=== PATIENT | female | born 1960 | race Caucasian/White ===

== ENCOUNTER 2017-08-08 09:54 | Day surgery (SDC) | payer OTHER, SELFPAY ==
[2017-08-08] VITALS (9 sets, daily range): BP systolic 106–157; BP diastolic 72–97; PULSE 55–79; RESP 12–16; TEMP 36.1–36.6; O2SAT 95–99
--- NOTE | 2017-08-08 10:51 | PM.PREOP ---
Pre-operative Note Interval Note Pre-op Check: History & Physical Reviewed by Physician and Exam Performed ASA Class (for procedural sedation): I
--- NOTE | 2017-08-08 11:07 | PM.OP.ENDO ---
Operative Date/Time/Diagnoses - Date of procedure: 08/08/17 Time of procedure: 11:08 Pre-op diagnosis: Vague upper abdominal pain chronic Post-op diagnosis: other (Normal examination) Procedure & Clinicians Study performed: EGD Same procedure as scheduled: Yes Indications: Vague abdominal pain cause uncertain Surgeon: Steven Hoff Procedure Notes SCOAP/Timeout: Perform Procedure in detail: The patient had topical anesthetic applied to oropharynx. She was placed in left lateral decubitus position and underwent IV sedation directed by the surgeon consisting of fentanyl and Versed. A bite block was inserted and the scope was advanced through it into the esophagus. The esophagus was unremarkable. GE junction was noted at 37 cm. The stomach insufflated well. There were no lesions seen in the body, antrum or at the incisura. The pyloric channel was mildly narrowed but patent. The duodenum was unremarkable to the 4th part. The scope was brought back into the stomach and retroflexed. The proximal stomach normal in appearance. There was no evidence of a hiatal hernia. The scope was straightened and brought out through the esophagus again. No lesions were seen. The scope was removed and the patient tolerated the procedure well. Scope withdrawal time: Not applicable Sedation minutes: 12 Findings: other findings (Normal exam) Specimen(s): none sent Complications: none Plan for aftercare: If the patient desires to have her gallbladder removed that can be done. Follow up: as needed Disposition: PACU
[2017-08-08] MEDS: fentaNYL 250 MCG/5 ML INJ 150 MCG IV (11:11)
[2017-08-08] MEDS: MIDAZOLAM 5 MG/5 ML VIAL 4 MG IV (11:11)
[2017-08-08] MEDS: LIDOCAINE 4% SOLN 50 ML 20 ML TOP (11:11)
[2017-08-08] MEDS: TETRACAINE/BENZOCAINE/BUTAMBEN (CETACAINE) BOTTLE 1 SPRAY TOP (11:12)
--- NOTE | 2017-08-08 11:58 | SUR.PHASEII ---
Assumed care. Pt drowsy. Easily aroused, smiling. Warm blanket applied. Pt requested to nap, lights dimmed.
[2017-08-08] MEDS: SODIUM CHLORIDE 0.9% 1,000 ML 84 ML IV (12:09)
--- NOTE | 2017-08-08 12:26 | SUR.PHASEII ---
Pt requested Tylenol for a headache, discussed need a Dr. order to give Tylenol, pt stated that she would just take one when she went home. Offered beverage, pt did not respond. Call light within reach.
== END 2017-08-08 12:53 | disposition home or self-care (01) ==
PROVIDERS: Family Provider Family Medicine Geriatric Medicine; PCP Family Medicine Geriatric Medicine; Visit Provider Specialist
PROC: 0DJ08ZZ Inspection of Upper Intestinal Tract, Via Natural or Artificial Opening Endoscopic (ICD-10-PCS; CPT 43235; principal; 2017-08-08 10:45)
DX: R10.10 Upper abdominal pain, unspecified (principal); R11.0 Nausea; Z87.11 Personal history of peptic ulcer disease; R68.81 Early satiety; K80.80 Other cholelithiasis without obstruction
CPT/HCPCS: 43235; 99152; J2250; J3010

== ENCOUNTER → 2018-05-05 19:19 | Outpatient (REF) | payer OTHER, SELFPAY ==
[2018-05-05 20:29] LABS: Add Manual Diff / Slide Review NO; Basophils Absolute Auto 0 /uL (0-100); Basophils Percent Auto 0.7 % (0-2); Eosinophils Absolute Auto 100 /uL (0-450); Hematocrit 43.3 % (36-46); Hemoglobin 14.7 g/dL (12.0-16.0); Lymphocytes Absolute Auto 1200 /uL (1100-4500); Mean Corpuscular Hemoglobin 31.1 PG (26-34); Mean Corpuscular Volume 91.4 fL (80-100); Monocytes Absolute Auto 400 /uL (0-900); Monocytes Percent Auto 8.2 % (3-14); Neutrophils Absolute Auto 3600 /uL (1500-7000); Neutrophils Percent Auto 67.1 % (50-75); Platelet Count 333 X10^3/uL (150-400); Red Blood Cell Count 4.73 X10^6/uL (4.0-5.2); Red Cell Distribution Width 13.4 % (11.6-14.8); White Blood Cell Count 5.4 X10^3/uL (4.5-11.0)
[2018-05-05 20:49] LABS: Alanine Aminotransferase 29 IU/L (9-52); Albumin 4.8 g/dL (3.5-5.0); Albumin Globulin Ratio 1.7 (1.0-2.8); Alkaline Phosphatase 54 U/L (38-126); Aspartate Aminotransferase 28 IU/L (14-36); BUN Creatinine Ratio 13.8 (6-22); Bilirubin Total 1.5 mg/dL (0.2-1.3); Blood Urea Nitrogen 11 mg/dL (7-17); Calcium 10.2 mg/dL (8.4-10.2); Carbon Dioxide 28 mmol/L (22-32); Chloride 101 mmol/L (98-107); Cholesterol 312 mg/dL (140-199); Estimated Glomerular Filt Rate > 60.0 mL/min (>60); Globulin 2.9 g/dL (1.7-4.1); Glucose 91 mg/dL (80-110); HDL Cholesterol 85 mg/dL (40-60); LDL Cholesterol Calculated 209 mg/dL (<100); Potassium 4.3 mmol/L (3.4-5.1); Sodium 139 mmol/L (137-145); Total Protein 7.7 g/dL (6.3-8.2); Triglycerides 88 mg/dL (35-150)
[2018-05-05 20:51] LABS: Hemoglobin A1C% w Est Avg Glu 5.1 % (4.0-6.0)
[2018-05-08 12:15] LABS: Amylase 72 U/L (30-110); HEMOLYSIS 16 (0-50); Lipase 185 U/L (23-300)
== END ==
LOC: LAB 19:19
PROVIDERS: Family Provider Family Medicine Geriatric Medicine; PCP Family Medicine Geriatric Medicine; Visit Provider Physician Assistant Medical
DX: E78.5 Hyperlipidemia, unspecified (principal); E83.52 Hypercalcemia; R53.1 Weakness; R31.9 Hematuria, unspecified; S01.301A Unspecified open wound of right ear, initial encounter
CPT/HCPCS: 36415; 80053; 80061; 82150; 83036; 83690; 85025; 87070; 87205

== ENCOUNTER → 2019-12-23 15:30 | Outpatient (CLI) | payer OTHER, SELFPAY ==
[2019-12-23 17:35] LABS: Hepatitis B Surface Antigen NEGATIVE s/c (NEGATIVE)
[2019-12-23 17:56] LABS: HIV 1 & 2 Ab/Ag 4th Gen Combo NEGATIVE (NEGATIVE); Hep C Virus Ab w/Reflex Quant NEGATIVE s/c (NEGATIVE)
[2019-12-24 05:37] LABS: RPR Screen Non Reactive (Non Reactive)
== END ==
PROVIDERS: Family Provider Family Medicine Geriatric Medicine; PCP Family Medicine; Referring Provider Obstetrics & Gynecology; Visit Provider Obstetrics & Gynecology
DX: Z00.00 Encounter for general adult medical examination without abnormal findings (principal); R31.9 Hematuria, unspecified; R39.9 Unspecified symptoms and signs involving the genitourinary system
CPT/HCPCS: 36415; 86592; 86803; 87086; 87340; 87389

== ENCOUNTER → 2020-04-28 10:21 | Outpatient (CLI) | payer OTHER, SELFPAY ==
[2020-04-28] MEDS: COVID-19 VACC #1, MRNA(MOD) 100 MCG/0.5 ML VIAL IM (10:30)
== END ==
PROVIDERS: Family Provider Family Medicine Geriatric Medicine; PCP Family Medicine; Visit Provider Internal Medicine
DX: Z23 Encounter for immunization (principal)
CPT/HCPCS: 0011A; 91301

== ENCOUNTER → 2020-05-26 12:42 | Outpatient (CLI) | payer OTHER, SELFPAY ==
[2020-05-26] MEDS: COVID-19 VACC #2, MRNA(MOD) 100 MCG/0.5 ML VIAL IM (12:55)
== END ==
PROVIDERS: Family Provider Family Medicine Geriatric Medicine; PCP Family Medicine; Visit Provider Internal Medicine
DX: Z23 Encounter for immunization (principal)
CPT/HCPCS: 0012A; 91301